=== PATIENT | male | born 1955 | race Caucasian/White ===

== ENCOUNTER 2018-03-15 08:53 | Day surgery (SDC) | payer OTHER ==
[~2018-03-15 08:53] MED LIST: Buffered Lidocaine 0.9% SYRIN* 5 ML/SYR SYRINGE INTRADERM ONE; Sodium Citrate/Citric Acid* 15 ML UDC PO ONE
[2018-03-15] MEDS ORDERED: Sodium Citrate/Citric Acid* 15 ML UDC ONE (09:10)
[2018-03-15] MEDS ORDERED: Clindamycin 900 MG IVPREMIX(* 900 MG/50 ML SDV IV ONE (09:10)
[2018-03-15] MEDS ORDERED: Bupivacaine 0.5% SDV PF* 30ML VIAL ONE (09:43)
[2018-03-15] MEDS ORDERED: Propofol* 10 MG/ML 20 ML BTL IV PUSH ONE (10:03)
[2018-03-15] MEDS ORDERED: fentaNYL* 50 MCG/ML 2 ML VIAL (100 MCG VIAL) ONE (10:03)
[2018-03-15] MEDS ORDERED: Lidocaine 2% PF * 5 ML VIAL ONE (10:03)
[2018-03-15] MEDS ORDERED: Ondansetron INJ* 2 MG/ML VIAL IV PRN (11:04)
[2018-03-15] MEDS ORDERED: Naloxone* 0.4 MG/ML 1 ML VIAL IV PRN (11:04)
[2018-03-15] MEDS ORDERED: fentaNYL* 50 MCG/ML 2 ML VIAL (100 MCG VIAL) IV PRN (11:04)
[2018-03-15 12:57] VITALS: BP 109/75
--- NOTE | 2018-03-20 10:31 | OP ---
OPERATIVE REPORT: DATE OF OPERATION: 03/15/18 - NEO DATE OF : 55 SURGEON: Tj Rudolph MD FIRE ENGINE PUMP OPERATOR: MARIANELA Noriega. An assistant statistician was needed for the procedure to aid in positioning of the arm and retraction. ANESTHESIOLOGIST: Dr. Felix. ANESTHESIA: General. PRE-OP DIAGNOSIS: Right dorsal hand chainsaw injury with probable ring and small finger extensor tendon injuries. POST-OP DIAGNOSES: 1. Large 8 to 10 cm dorsal hand wound secondary to chainsaw injury. 2. Right ring finger central slip laceration. 3. Right small finger zone 5 extensor tendon laceration. 4. Traumatic right small finger metacarpophalangeal joint arthrotomy. 5. Open fractures of the right 5th metacarpal head and right small finger proximal phalanx base. OPERATIVE PROCEDURE: 1. Irrigation and debridement of right small finger and proximal phalanx 5th metacarpal head open fractures including skin, subcutaneous tissue, fascia and bone. 2. Irrigation and debridement of right small finger metacarpophalangeal joint traumatic arthrotomy with closure of capsule. 3. Repair of right small finger zone 5 extensor tendon laceration. 4. Repair of right ring finger central slip laceration. 5. Debridement and closure of traumatic chainsaw wound, right dorsal hand measuring 8 cm. INDICATIONS: Shaq had the chainsaw wound that was over the dorsum of the hand. He had praveen loss of extension in the right small finger. He had some loss of extension, although less significant in the right ring finger. The nature of the wound precluded in Jani test. The wound was such that it clearly needed to be irrigated out and debrided and explored and the extensor tendons repaired as needed. He understands to the risks and benefits of surgery including the risk of infection, risk of adhesions, risk of stiffness and hand dysfunction despite surgery. He wanted to proceed with surgery. ESTIMATED BLOOD LOSS: 5 mL. COMPLICATIONS: None. FINDINGS: See above and below. DESCRIPTION OF PROCEDURE: Shaq was seen in the preoperative holding area. The correct site, side and procedures were identified. We came back to the operating room where the arm was prepped and draped in the usual fashion. A time-out was performed. The arm was exsanguinated with the Esmarch and the tourniquet inflated to 250 mmHg. I had removed his sutures that were placed in the emergency room prior to prepping the skin. I went ahead and reopened the traumatic wound by bluntly spreading with the tenotomy scissors. I extended the traumatic wound proximally and distally to expose the entirety of the zone of injury. The wound did extend obliquely from proximal ulnar over the mid portion to the distal third of the hand across the dorsum of the small finger MP joint and out on to the dorsum of the ring finger. After the skin flaps were sown back, we were able to identify a laceration through the entirety of the central slip of the right ring finger. The entirety of the extensor mechanism over the right small finger MP joint was disrupted. There was a traumatic arthrotomy and a portion of the distal dorsal radial metacarpal head had been removed by the chainsaw, in addition to it a portion of the proximal dorsal radial base of the proximal phalanx. I took under 3.5x magnification, I removed all contamination and foreign material. Any tissue that was nonviable was debrided sharply with the knife and the tenotomy scissors. The skin edge was turned back with a 15- blade excising a mm of sowed skin along the edge of the traumatic wound until it had a nice clean skin edge. I excised a few chips of bone that were in the joint secondary to the fracture. The shredded portions of the capsule were excised as well. There was actually enough capsule left that I could get it closed. After the debridement was done, I took some 3-0 PDS suture and performed multiple 3- 4 [id number] sutures to repair the central slip of the right ring finger. This came together very nicely. I then took a 5-0 Prolene and was able to close the capsule over the dorsum of the metacarpophalangeal joint. With the joint capsule closed, I was able to then take the 3-0 PDS and in similar fashion placed multiple [id number] suture around the circumference of the extensor mayfield and repaired the extensor mechanism, so it was held together very nicely. There was a little bit of a shredded edge that I trimmed back with the 15-blade prior to doing the repair. Ultimately things came together very nicely with excellent apposition of the tendon all along the repair. With both tendons repaired and the joints washed out and closed and the wound looking good and the skin edges debrided back to viable skin edges, I went ahead and took the 4-0 nylon and the skin was closed along the entirety of the traumatic wound plus the additional extensions that I had made at the beginning of the case. Once the wound was nicely closed, we infiltrated the area with 0.5 % Marcaine and the wounds were dressed and an anterior splint was applied holding the MP joint in extension and the IP joints in extension. The tourniquet was deflated. The fingers all pinked up immediately. The patient was taken to recovery room in stable condition. [id number]/[facility] #: [id number] MAUDE
== END 2018-03-15 12:52 | disposition home or self-care (01) ==
LOC: OREAST 08:53
PROVIDERS: ATTEND Orthopaedic Surgery Hand Surgery
DX: S66.326A Laceration of extensor muscle, fascia and tendon of right little finger at wrist and hand level, initial encounter (principal); S62.396B Other fracture of fifth metacarpal bone, right hand, initial encounter for open fracture; S62.616B Displaced fracture of proximal phalanx of right little finger, initial encounter for open fracture; W31.2XXA Contact with powered woodworking and forming machines, initial encounter; Y93.89 Activity, other specified; Y92.9 Unspecified place or not applicable; Z72.0 Tobacco use; Z68.32 Body mass index [BMI] 32.0-32.9, adult; I10 Essential (primary) hypertension; G47.33 Obstructive sleep apnea (adult) (pediatric); R73.03 Prediabetes; E78.00 Pure hypercholesterolemia, unspecified; R25.1 Tremor, unspecified
CPT/HCPCS: A9270-GY; J2704; J3010

== ENCOUNTER 2019-10-29 10:56 | Emergency (ER) | payer SELFPAY ==
--- NOTE | 2019-10-29 11:54 | ED ---
Laceration/Wound HPI - HPI Summary HPI Summary: This patient is an otherwise healthy 63-year-old male who presents to the ED with a laceration just distal to the MCP joint of the dorsum of the left index finger from a chainsaw. 2cm laceration noted. Tetanus UTD. Pt able to flex, unable to extend. Denies pain. Bleeding controlled. Pt states same happened 2 years ago and required surgery. - History of Current Complaint Stated Complaint: L HAND CHANINSAW INJ PER PT Time Seen by Provider: 10/29/19 11:11 Hx Obtained From: Patient Mechanism of Injury: Sharp/Blunt Trauma Onset/Duration: Sudden Onset Aggravating: Movement Alleviating: Compression Timing: Constant Onset Severity: Mild Current Severity: None Pain Intensity: 0 Pain Scale Used: 0-10 Numeric Associated Signs & Symptoms: Negative - Allergy/Home Medications Allergies/Adverse Reactions: Allergies Allergy/AdvReac Type Severity Reaction Status Date / Time Penicillins Allergy Severe Hives Verified 03/15/18 09:18 PMH/Surg Hx/FS Hx/Imm Hx Previously Healthy: Yes Endocrine/Hematology History: Reports: Hx Diabetes - PRE DIABETIC Cardiovascular History: Reports: Hx Hypertension - CONTROLLED WITH MEDS Denies: Hx Pacemaker/ICD History: Reports: Other Problems/Disorders - BPH Denies: Hx Renal Disease Sensory History: Reports: Hx Contacts or Glasses - READING Denies: Hx Hearing Aid Opthamlomology History: Reports: Hx Contacts or Glasses - READING Neurological History: Reports: Hx Nerve Disease - TREMORS Psychiatric History: Reports: Hx Depression Denies: Hx Panic Disorder - Cancer History Hx Chemotherapy: No - Surgical History Surgery Procedure, Year, and Place: TONSILECTOMY. VASECTOMY. GALLBLADDER- 2006. CATARACT-2009,2010. Rt KNEE - ARTHROSCOPIC -2004 Hx Anesthesia Reactions: No - Immunization History Hx Pertussis Vaccination: No Immunizations Up to Date: Yes Infectious Disease History: No Infectious Disease History: Reports: Hx Hepatitis - HEP C- CURED Denies: Traveled Outside the [place] in Last 30 Days - Social History Occupation: Unemployed Lives: With Family Alcohol Use: Occasionally Hx Substance Use: No Substance Use Type: Reports: None Hx Tobacco Use: No Smoking Status (MU): Light Every Day Tobacco Smoker Amount Used/How Often: SMOKED FOR 30 YEARS OFF AND ON 5 CIGARETTES A DAY Review of Systems Negative: Fever, Chills, Fatigue, Skin Diaphoresis Negative: Palpitations, Chest Pain Negative: Shortness Of Breath, Cough Genitourinary: Negative Positive: no symptoms reported, see HPI Negative: Arthralgia, Myalgia Skin: Negative All Other Systems Reviewed And Are Negative: Yes Physical Exam Triage Information Reviewed: Yes Vital Signs On Initial Exam: Initial Vitals Temp Pulse Resp BP Pulse Ox 97.1 F 86 18 147/125 96 10/29/19 11:04 10/29/19 11:04 10/29/19 11:04 10/29/19 11:04 10/29/19 11:04 Vital Signs Reviewed: Yes Appearance: Positive: Well-Appearing, Well-Nourished Skin: Positive: Warm, Skin Color Reflects Adequate Perfusion, Other - laceration 2cm just distal to the MCP with tendon involvement Head/Face: Positive: Normal Head/Face Inspection Eyes: Positive: EOMI, LIZETTE, Conjunctiva Clear Neck: Positive: Supple, No Lymphadenopathy Respiratory/Lung Sounds: Positive: Clear to Auscultation, Breath Sounds Present Cardiovascular: Positive: RRR, Pulses are Symmetrical in both Upper and Lower Extremities Musculoskeletal: Positive: Normal, Strength/ROM Intact Neurological: Positive: Speech Normal Psychiatric: Positive: Normal, Affect/Mood Appropriate Procedures - Sedation Patient Received Moderate/Deep Sedation with Procedure: No Diagnostics - Vital Signs Vital Signs Temp Pulse Resp BP Pulse Ox 10/29/19 11:04 97.1 F 86 18 147/125 96 - Laboratory Lab Statement: Any lab studies that have been ordered have been reviewed, and results considered in the medical decision making process. Laceration Repair Course/Dx - Course Course Of Treatment: Patient presenting to the emergency department for extensive laceration just distal to the L MCP likely involving the extensor tendon. Pt able to flex, but not extend. Denies pain. Laceration is 2cm in length. Bleeding is controlled. Tetanus UTD as of 2 years ago. Xray: IMPRESSION: Likely old avulsion second metacarpal phalangeal joint. No recent fracture is noted. I called and scheduled an appointment with Dr. Chavira for tomorrow for 2pm. Wound was copiously irrigated and loosely closed. Occlusive gauze and wrapped. Splint placed. Rx for Keflex sent to pharmacy. Advised patient to go to orthopedic office tomorrow for his appointment. To keep splint and dressing in place until tomorrow. Take antibiotic as directed. Tylenol or Motrin for pain as directed. To return to the ER for redness, swelling or drainage or if needed. Pt. understands and agrees with this plan. - Differential Dx Differental Diagnoses: Laceration, Tendon Laceration - Clinical Impression Provider Diagnoses: Finger laceration involving tendon Discharge ED - Sign-Out/Discharge Documenting (check all that apply): Patient Departure - Discharge Plan Condition: Good Disposition: HOME Prescriptions: Cephalexin CAP* [Keflex CAP*] 500 mg PO TID #21 cap MDD 3 Patient Education Materials: Tendon Laceration (ED) Referrals: Mariano Eubanks MD [Primary Care Provider] - Tj Rudolph MD [Medical Doctor] - Fan PACKER,Alicja Cohn [Nurse Practitioner] - Additional Instructions: Keep finger in splint at all times You have an appt with Dr. Chavira tomorrow at 2pm. You may rebandage the area daily and wash the area with soap and water - Billing Disposition and Condition Condition: GOOD Disposition: Home Images - Images Hands: 1 - 2cm laceration likely involving extensor tendon - Attestation Statements Provider Attestation: I was available for consult. This patient was seen by the ALEJO. The patient was not presented to, seen by, or examined by me. Brayden Coker MD
[2019-10-29 12:48] VITALS: BP 0/0
== END 2019-10-29 12:46 | disposition home or self-care (01) ==
LOC: ED 10:56
DX: S61.211A Laceration without foreign body of left index finger without damage to nail, initial encounter (principal); W27.8XXA Contact with other nonpowered hand tool, initial encounter; Y92.9 Unspecified place or not applicable; F17.210 Nicotine dependence, cigarettes, uncomplicated; R73.03 Prediabetes; I10 Essential (primary) hypertension; Z88.0 Allergy status to penicillin; F32.9 Major depressive disorder, single episode, unspecified; Z79.82 Long term (current) use of aspirin; Z79.899 Other long term (current) drug therapy
CPT/HCPCS: 99282

== ENCOUNTER 2019-11-01 10:21 | Day surgery (SDC) | payer OTHER ==
--- NOTE | 2019-10-31 09:18 | HP ---
AMENDED REPORT NOW INCLUDES DESIGNATED COSIGNER - ESIGNED BEFORE ADJUSTMENTS PREOPERATIVE HISTORY AND PHYSICAL: DATE OF SURGERY/ADMISSION: 11/01/19 DATE OF OFFICE VISIT/ENCOUNTER: 10/30/19 ATTENDING SURGEON: Marii Rick MD * (DICTATED BY MARIANELA CARLISLE) PROCEDURE: Left index finger extensor tendon repair. 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 He was cutting trees with a chain saw on and accidentally cut his left hand over the MP joint of his index finger. He had a similar injury a year and a half ago and suffered an extensor tendon laceration of his right small finger. He had surgery and he had healed very nicely from that. After his more recent injury, he was seen at [facility] Emergency Room. He had the wound cleaned. He was placed on Keflex and sutures were placed in the skin. He has not been able to extend the left index finger since the injury. He has consented to proceed with surgical intervention to repair the extensor tendon. PAST MEDICAL HISTORY: 1. Hypertension. 2. Hypercholesterolemia. 3. Diabetes. 4. History of hepatitis C. PAST SURGICAL HISTORY: 1. Right hand surgery. 2. Right knee surgery x2. 3. Tonsillectomy. 4. Bilateral cataract removal. 5. Cholecystectomy. 6. Vasectomy. CURRENT MEDICATIONS: 1. Amlodipine besylate 2.5 mg daily. 2. Aspirin low dose 81 mg daily. 3. Atorvastatin calcium 10 mg daily. 4. Keflex 500 mg t.i.d. 5. Finasteride 5 mg. 6. Flomax 0.4 mg daily. 7. Ibuprofen 400 mg q.4 hours. 8. Metformin HCL 500 mg twice a day. 9. Provigil 200 mg daily. 10. Wellbutrin XL 300 mg daily. The patient is using this to help assist cessation of smoking. ALLERGIES: Penicillin causes hives. FAMILY MEDICAL HISTORY: Cancer. SOCIAL HISTORY: The patient lives with his spouse. 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 He is a current smoker. He reports smoking 5 cigarettes a day and has done so for 30+ years. He denies recreational drug use. He drinks alcohol on regular occasion. REVIEW OF SYSTEMS: Negative for general, cephalic, cardiovascular, respiratory , GI, , other musculoskeletal, integumentary, endocrine, neurologic and hematologic symptoms. Infectious Disease: Negative for history of MRSA and HIV. Positive for history of hepatitis C. PHYSICAL EXAMINATION GENERAL: Well-developed, well-nourished 63-year-old male, in on acute distress. VITAL SIGNS: Height 6 feet 4 inches, weight 265 pounds, pulse rate 80, blood pressure 132/80. HEENT: Normocephalic, atraumatic. Pupils are equal, round and reactive to light and accommodation. Extraocular movements are intact. NECK: Supple. No palpable lymph nodes. Throat is clear. PULMONARY: Lungs are clear to auscultation bilaterally. No wheezes, rales or rhonchi. CARDIOVASCULAR: Regular rate and rhythm. S1, S2. No murmurs, rubs or gallops. No edema. ABDOMEN: Positive bowel sounds, soft, nontender. MUSCULOSKELETAL: On exam of his left hand, he has a laceration over the MP joint of his index finger and minimal active extension of the index finger. He has active flexion present. Neurovascular function is intact. Wound is clean. Sutures are in place. There is no sign of infection. NEUROLOGIC: Alert and oriented x3. Cranial nerves II through XII are intact. Sensation is intact to light touch. IMPRESSION: Left index finger extensor tendon laceration. PLAN: The patient is scheduled to undergo a left index finger extensor tendon repair with Dr. Rick on 11/01/19. He will return to the office 10 days postop for followup and suture removal. A prescription for Deary was e-scribed to the patient's pharmacy for postoperative pain management. MARIANELA CARLISLE [id number]/[facility] #: [id number] MAUDE
[~2019-11-01 10:21] MED LIST changes: +Acetaminophen TAB* 325 MG ONE; +Acetaminophen TAB* 325 MG PO ONE; -Buffered Lidocaine 0.9% SYRIN* 5 ML/SYR SYRINGE INTRADERM ONE; +Buffered Lidocaine 1% SYRIN* 1 ML/SYRINGE INTRADERM ONE; +Clindamycin 900 MG/D5W BAG(*) 900 MG/50 ML BAG IVPB ONE; +Famotidine IV* 10 MG/ML 2 ML (20 mg) IV ONE; +Famotidine IV* 10 MG/ML 2 ML (20 mg) ONE; +Lactated Ringers 1000 ML Bag* 1,000 ML IV SCH; -Sodium Citrate/Citric Acid* 15 ML UDC PO ONE
[2019-11-01] MEDS ORDERED: Midazolam* 1 MG/ML 2 ML VIAL (2 MG) ONE (11:27)
[2019-11-01] MEDS ORDERED: fentaNYL* 50 MCG/ML 2 ML VIAL (100 MCG VIAL) ONE (11:27)
[2019-11-01] MEDS ORDERED: Lidocaine 1% INJ* 10 MG/ML 30 ML SDV ONE (11:47)
[2019-11-01] MEDS ORDERED: Lidocaine 2% PF * 5 ML VIAL ONE (12:08)
[2019-11-01] MEDS ORDERED: Naloxone* 0.4 MG/ML 1 ML VIAL IV PRN (12:20)
[2019-11-01] MEDS ORDERED: HYDROcodone/ACETAMIN 5-325 MG* 1 TAB PO PRN (12:20)
[2019-11-01] MEDS ORDERED: Levalbuterol 0.63MG/3ML NEB* UNIT OF USE INH PRN (12:20)
[2019-11-01] MEDS ORDERED: Ondansetron INJ* 2 MG/ML VIAL IV PRN (12:20)
[2019-11-01] MEDS ORDERED: diPHENhydraMINE IV* 50 MG/ML 1 ml VIAL (BENADRYL) IV PRN (12:20)
[2019-11-01] MEDS ORDERED: DiMENhydriNATE IV* 50 MG/ML VIAL IV PUSH PRN (12:20)
[2019-11-01] MEDS ORDERED: fentaNYL* 50 MCG/ML 2 ML VIAL (100 MCG VIAL) IV PRN (12:20)
[2019-11-01] MEDS ORDERED: Ketorolac INJ* 30 MG/ML 1 ML VIAL ONE (12:31)
[2019-11-01] MEDS ORDERED: Propofol* 10 MG/ML 20 ML BTL ONE (12:31)
[2019-11-01] MEDS ORDERED: Dexamethasone IV* 4 MG/ML 1 ML (4 MG) ONE (12:31)
[2019-11-01 13:34] VITALS: BP 115/67
--- NOTE | 2019-11-02 01:17 | OP ---
DATE OF OPERATION: 11/01/19 [facility] DATE OF : 55 SURGEON: Marii Rick MD GREEN MARKETING SPECIALIST: MARIANELA Guajardo ANESTHESIA: General. PRE-OP DIAGNOSIS: Left index finger extensor tendon laceration. POST-OP DIAGNOSIS: Left index finger extensor tendon laceration. OPERATIVE PROCEDURE: Extensor tendon repair, left index finger. INDICATIONS: Shaq is a 63-year-old male who suffered a laceration on the dorsal aspect of his left hand at the MP joint. He cut himself with a chainsaw at work. He had a similar injury a year and a half ago, did very well after repair from that. He presents for extensor tendon repair of the left index finger. ESTIMATED BLOOD LOSS: Zero. TOURNIQUET TIME: About 30 minutes. DESCRIPTION OF PROCEDURE: The patient was brought to the operating room, was given a general anesthetic and placed in the supine position on the operating table with a tourniquet around his left lower extremity. The skin of his left upper extremity was prepped and draped in the usual sterile fashion. The sutures were removed and the wound was irrigated with a liter of saline. The chainsaw had cut all the way down to the MP joint and in fact into the proximal phalanx and damaged a portion of cartilage of the index finger metacarpal. After the wound was copiously irrigated with saline, the extensor tendon was repaired in interrupted fashion with 4-0 Prolene suture. The wound was again irrigated and the skin edges were reapproximated with 4-0 nylon sutures. The wound was dressed with Xeroform, 4x4, Webril and the patient was placed in a volar splint with the MP joint flexed and wrist extended. The patient tolerated the procedure well and was brought to the recovery room in good condition. [id number]/[facility] #: [id number] [facility]ITAL[facility]
== END 2019-11-01 13:52 | disposition home or self-care (01) ==
LOC: OREAST 10:21
PROVIDERS: ATTEND Orthopaedic Surgery
DX: S66.321A Laceration of extensor muscle, fascia and tendon of left index finger at wrist and hand level, initial encounter (principal); I10 Essential (primary) hypertension; E78.00 Pure hypercholesterolemia, unspecified; E11.9 Type 2 diabetes mellitus without complications; Z79.84 Long term (current) use of oral hypoglycemic drugs; Z88.0 Allergy status to penicillin; W31.89XA Contact with other specified machinery, initial encounter; Y93.89 Activity, other specified; Y92.9 Unspecified place or not applicable; Y99.0 Civilian activity done for income or pay
CPT/HCPCS: A9270-GY; J1100; J1885; J2250; J2704; J3010

== ENCOUNTER 2020-03-13 08:18 | Observation (INO) ==
[~2020-03-13 08:18] MED LIST changes: +Acetaminophen IV 1 GM/100ML 1,000 MG/100 ML VIAL IVPB ONE; -Acetaminophen TAB* 325 MG ONE; -Acetaminophen TAB* 325 MG PO ONE; -Buffered Lidocaine 1% SYRIN* 1 ML/SYRINGE INTRADERM ONE; -Clindamycin 900 MG/D5W BAG(*) 900 MG/50 ML BAG IVPB ONE; +Dexamethasone IV 4 MG/ML VIAL 1 ml VIAL IV SLOW PU ONE; +Famotidine IV 10 MG/ML 2 ml VIAL (20 mg) IV ONE; -Famotidine IV* 10 MG/ML 2 ML (20 mg) IV ONE; -Famotidine IV* 10 MG/ML 2 ML (20 mg) ONE; -Lactated Ringers 1000 ML Bag* 1,000 ML IV SCH; +Lactated Ringers 1000 ml BAG 1,000 ML IV SCH; +Levalbuterol 0.63MG/3ML NEB UNIT OF USE INH ONE
[2020-03-13] MEDS ORDERED: Buffered Lidocaine 1% SYRIN 1 ml INTRADERM ONE (08:42)
[2020-03-13] MEDS ORDERED: Levalbuterol 0.63MG/3ML NEB UNIT OF USE INH ONE (08:46)
[2020-03-13] MEDS ORDERED: Famotidine IV 10 MG/ML 2 ml VIAL (20 mg) ONE (08:46)
[2020-03-13] MEDS ORDERED: Acetaminophen IV 1 GM/100ML 100 ML ONE (08:46)
[2020-03-13] MEDS ORDERED: Dexamethasone IV 4 MG/ML VIAL 1 ml VIAL ONE (08:46)
[2020-03-13] MEDS ORDERED: Midazolam 5 mg/5 ml VIAL 1 mg/ml 5 ml VIAL (5 mg) ONE (09:26)
[2020-03-13] MEDS ORDERED: Clindamycin 900 MG/D5W BAG(*) 900 MG/50 ML BAG IVPB ONE (10:00)
[2020-03-13] MEDS ORDERED: Midazolam 2 mg/2 ml VIAL 1 mg/ml 2 ml VIAL (2 mg) ONE (10:44)
[2020-03-13] MEDS ORDERED: fentaNYL 100 mcg/2 ml 50 MCG/ML VIAL ONE (10:45)
[2020-03-13] MEDS ORDERED: Lidocaine 2% JELLY 6 ML TOPICAL ONE (10:46)
[2020-03-13] MEDS ORDERED: Bupivacaine 0.5% SDV PF 30ML VIAL ONE (10:48)
[2020-03-13] MEDS ORDERED: ROPIVACAINE 5 MG/ML 30 ML BTL (0.5%) ONE ×2 (10:48→10:57)
[2020-03-13] MEDS ORDERED: Ondansetron 4 mg VIAL 2 MG/ML 2 ml VIAL ONE (11:55)
[2020-03-13] MEDS ORDERED: HYDROmorphone 1 MG/1 ML SYRINGE IV PRN (12:22)
[2020-03-13] MEDS ORDERED: fentaNYL 100 mcg/2 ml 50 MCG/ML VIAL IV PRN (12:22)
[2020-03-13] MEDS ORDERED: DiMENhydriNATE IV 50 mg/ml 1 ml VIAL IV PUSH PRN (12:22)
[2020-03-13] MEDS ORDERED: Naloxone 0.4 mg VIAL 0.4 mg/ml 1 ml VIAL IV PRN (12:22)
[2020-03-13] MEDS ORDERED: Ondansetron 4 mg VIAL 2 MG/ML 2 ml VIAL IV PRN ×2 (12:22→14:16)
[2020-03-13] MEDS ORDERED: Propofol 10 MG/ML 20 ML BTL ONE (12:35)
[2020-03-13] MEDS ORDERED: diPHENhydraMINE 25 mg TAB PO PRN (14:16)
[2020-03-13] MEDS ORDERED: Lactulose 30 ml UDC PO PRN (14:16)
[2020-03-13] MEDS ORDERED: Morphine 2 MG/ML SYRINGE IV PRN (14:16)
[2020-03-13] MEDS ORDERED: Ondansetron ODT 4 mg TAB 4 MG TAB PO PRN (14:16)
[2020-03-13] MEDS ORDERED: oxyCODONE/Acetamin 5/325 mg TAB PO PRN (14:16)
[2020-03-13] MEDS ORDERED: diPHENhydraMINE IV 50 MG/ML 1 ml VIAL (BENADRYL) IV PRN (14:16)
[2020-03-13] MEDS ORDERED: Magnesium Hydroxide LIQ 30 ML UDC PO PRN (14:16)
[2020-03-13] MEDS ORDERED: Polyethylene Glycol 3350 17 GM PACKET PO PRN (14:26)
[2020-03-13] MEDS ORDERED: Lactated Ringers 1000 ml BAG 1,000 ML IV SCH (15:00)
[2020-03-13] MEDS ORDERED: oxyCODONE/Acetamin 5/325 mg TAB ONE (15:08)
[2020-03-13] MEDS ORDERED: Dextrose 50% Syringe 50 ml 25 GM/50 ML SYRINGE IV PUSH PRN (15:40)
[2020-03-13] MEDS: oxyCODONE/Acetamin 5/325 mg TAB PO PRN ×2 (16:41→21:18)
[2020-03-13] MEDS: Insulin LISPRO 100 units/ml(*) SUBCUT SCH (17:41)
[2020-03-13] MEDS ORDERED: Aspirin EC 81 mg TAB.EC (enteric coated) PO SCH (18:00)
[2020-03-13] MEDS: Clindamycin 600 MG/D5W BAG(*) 600 MG/50 ML BAG IV SCH (21:10)
[2020-03-13] MEDS: Magnesium Hydroxide LIQ 30 ML UDC PO SCH (21:11)
[2020-03-14] MEDS: oxyCODONE/Acetamin 5/325 mg TAB PO PRN ×3 (02:12→13:37)
[2020-03-14] MEDS: Clindamycin 600 MG/D5W BAG(*) 600 MG/50 ML BAG IV SCH ×2 (04:26→12:38)
[2020-03-14] MEDS ORDERED: Vitamin THERAPEUTIC TAB PO SCH (09:00)
[2020-03-14 09:36] LABS: Hematocrit 38 % (42-52); Platelet Count 186 10^3/uL (150-450)
[2020-03-14] MEDS: Insulin LISPRO 100 units/ml(*) SUBCUT SCH ×2 (09:36→12:04)
[2020-03-14] MEDS: Magnesium Hydroxide LIQ 30 ML UDC PO SCH (09:44)
[2020-03-14 09:51] LABS: BUN/Creatinine Ratio 19.1 (8-20); Calcium 8.5 mg/dL (8.6-10.3); EGFR African American 97.8 (>60); EGFR Non-African American 80.8 (>60)
[2020-03-14 11:48] VITALS: BP 117/58
== END 2020-03-14 14:20 | disposition home or self-care (01) ==
LOC: SSU 08:18 → OR 08:18 → EDSTATUS 13:30
PROVIDERS: ADMIT Physician Assistant; ATTEND Orthopaedic Surgery Adult Reconstructive Orthopaedic Surgery